=== PATIENT | male | born 1970 ===

== ENCOUNTER 2018-03-12 07:39 | Outpatient (CLI) | payer OTHER | END 2018-03-12 07:40 | disposition home or self-care (01) | LOC: SONOGRAMA 07:39 → SONO 607 08:15 | DX: R10.84 Generalized abdominal pain (principal) ==

== ENCOUNTER 2019-04-28 11:56 | Outpatient (CLI) | payer OTHER | END 2019-04-28 12:01 | disposition home or self-care (01) | LOC: RAD 11:56 | DX: M25.571 Pain in right ankle and joints of right foot (principal) ==

== ENCOUNTER 2020-05-14 09:04 | Outpatient (CLI) | payer OTHER | END 2020-05-14 09:12 | disposition home or self-care (01) | LOC: RAD 09:04 | PROVIDERS: ATTEND General Practice | DX: R10.84 Generalized abdominal pain (principal) ==

== ENCOUNTER 2020-07-09 09:54 | Outpatient (CLI) | payer OTHER | END 2020-07-09 10:03 | disposition home or self-care (01) | LOC: TOM 09:54 | PROVIDERS: ATTEND Family Medicine | DX: R10.84 Generalized abdominal pain (principal); Z00.00 Encounter for general adult medical examination without abnormal findings ==

== ENCOUNTER 2023-09-03 11:09 | Outpatient (CLI) | payer OTHER | END 2023-09-03 11:10 | disposition home or self-care (01) | LOC: NUCLEAR 11:09 | PROVIDERS: ATTEND Internal Medicine Cardiovascular Disease | DX: I20.1 Angina pectoris with documented spasm (principal) ==